=== PATIENT | female | born 1985 | race Hispanic/Latino ===

== ENCOUNTER 2017-12-06 19:44 | Emergency (ER) | payer OTHER ==
[~2017-12-06] VITALS: Ht 152.4 cm; Wt 99.8 kg
[2017-12-06 22:20] LABS: BILIRUBIN,URINE NEGATIVE (NEGATIVE); KETONES,URINE NEGATIVE (NEGATIVE); LEUKOCYTE ESTERASE ,URINE 2+ (NEGATIVE); NITRITE,URINE NEGATIVE (NEGATIVE); PROTEIN,URINE DIPSTICK NEGATIVE (NEGATIVE); URINE UROBILINOGEN 4 mg/dL (0.2 - 1)
[2017-12-06 22:22] LABS: CLARITY,URINE SL CLOUDY (CLEAR); COLOR,URINE YELLOW (YELLOW)
[2017-12-06 22:23] LABS: BASOPHILS % 0.1 % (0.0-1.0); HEMATOCRIT 37.5 % (34.2-44.1); HEMOGLOBIN 12.2 g/dL (12.0-16.0); LYMPHOCYTES # (AUTO) 0.5 (1.0-3.2); LYMPHOCYTES % 3.8 % (18.0-39.1); MEAN CORPUSCULAR HEMOGLOBIN 30.2 pg (28-32); MEAN CORPUSCULAR HGB CONC 32.5 g/dL (31-35); MEAN CORPUSCULAR VOLUME 92.8 fL (81-99); MONOCYTES # (AUTO) 0.4 (0.2-0.8); MONOCYTES % 2.9 % (4.4-11.3); NEUTROPHILS # (AUTO) 11.2 (2.1-6.9); NEUTROPHILS % 92.9 % (38.7-80.0); PLATELET COUNT 271 x10e3/uL (140-360); RED BLOOD COUNT 4.04 x10e6/uL (3.6-5.1); RED CELL DISTRIBUTION WIDTH 12.7 % (11.7-14.4)
[2017-12-06 22:24] LABS: PREGNANCY TEST, URINE NEGATIVE (NEGATIVE)
[2017-12-06 22:32] LABS: BACTERIA,URINE MODERATE /HPF; EPITHELIAL CELLS,URINE MANY /LPF; MUCUS,URINE MODERATE (RARE); RBC,URINE 0-5 /HPF (0-5)
[2017-12-06 22:34] LABS: ALANINE AMINOTRANSFERASE 23 IU/L (0-55); ALBUMIN 3.7 g/dL (3.5-5.0); ALBUMIN/GLOBULIN RATIO 0.9 (0.8-2.0); ALKALINE PHOSPHATASE 93 IU/L (40-150); AMYLASE 43 U/L (25-125); ANION GAP 13.8 mmol/L (8-16); BLOOD UREA NITROGEN 14 mg/dL (7-26); BUN/CREATININE RATIO 16 (6-25); CALCIUM 8.8 mg/dL (8.4-10.2); CARBON DIOXIDE 21 mmol/L (22-29); CHLORIDE 105 mmol/L (98-107); CREATININE, SERUM 0.87 mg/dL (0.57-1.11); EST GLOMERULAR FILTRATION RATE > 60 ML/MIN (60-); GLUCOSE 98 mg/dL (74-118); LIPASE 16 U/L (8-78); POTASSIUM 3.8 mmol/L (3.5-5.1); SODIUM 136 mmol/L (136-145)
[2017-12-06] MEDS ORDERED: ACETAMINOPHEN 325 MG TAB PO ONE (23:45)
--- NOTE | 2017-12-06 23:46 | Diagnostic Imaging Report ---
EXAM: Right Upper Quadrant Ultrasound INDICATION: Abdominal pain COMPARISON: None. TECHNIQUE: Transverse and longitudinal images of the right upper abdomen were obtained. FINDINGS: Liver: Size: 15.8 cm in the right midclavicular line, normal Appearance: Normal echogenicity, smooth contour Mass: No focal masses Gallbladder: Stones/Sludge: None Wall: 0.2 cm Appearance: No wall thickening, pericholecystic fluid or hydrops. Sonographic Buck's Sign: Negative Bile Ducts: Intrahepatic Ducts: No dilatation Extrahepatic Ducts: Common bile duct measures 0.3 cm, no dilatation Pancreas: Visualized portions of the pancreatic head, neck and proximal body are normal. Kidneys: Length: Right 9.1 cm Echogenicity: Normal Collecting System: No hydronephrosis Stone: None Cyst/Mass: None Vessels: Aorta: Visualized portions are normal Inferior Vena Cava: Visualized portions are normal Main Portal Vein: 0.9 cm, normal size with hepatopetal flow. Free Fluid: No ascites or pleural effusion IMPRESSION: Normal right upper quadrant ultrasound. Signed by: Dr. Israel Musa M.D. on 12/06/2017 11:42 PM
[2017-12-07] MEDS ORDERED: CEFTRIAXONE SOD 1 GM VIAL IM STA (00:21)
[2017-12-07] MEDS ORDERED: CEFTRIAXONE SOD 1 GM VIAL IV STA (00:54)
[2017-12-07 00:57] VITALS: BP 115/56
== END 2017-12-07 01:50 | disposition home or self-care (01) ==
LOC: ER 19:44
DX: R10.13 Epigastric pain (principal); R50.9 Fever, unspecified; N30.91 Cystitis, unspecified with hematuria
CPT/HCPCS: 36415; 76705; 80053; 81001; 81025; 82150; 83690; 85025; 87086; 87400; 99284; J0696

== ENCOUNTER 2017-12-15 10:29 | Emergency (ER) | payer OTHER ==
[~2017-12-15] VITALS: Ht 152.4 cm; Wt 99.8 kg
[2017-12-15 11:21] LABS: BILIRUBIN,URINE 1+ (NEGATIVE); KETONES,URINE 1+ (NEGATIVE); LEUKOCYTE ESTERASE ,URINE 2+ (NEGATIVE); NITRITE,URINE NEGATIVE (NEGATIVE); URINE UROBILINOGEN 0.2 mg/dL (0.2 - 1)
[2017-12-15 11:27] LABS: CLARITY,URINE SL CLOUDY (CLEAR); COLOR,URINE AMBER (YELLOW); PROTEIN,URINE DIPSTICK 2+ (NEGATIVE)
[2017-12-15 11:56] LABS: BACTERIA,URINE FEW /HPF; EPITHELIAL CELLS,URINE MODERATE /LPF; RBC,URINE 21-50 /HPF (0-5)
[2017-12-15 14:28] LABS: BASOPHILS % 0.1 % (0.0-1.0); HEMATOCRIT 38.9 % (34.2-44.1); HEMOGLOBIN 12.7 g/dL (12.0-16.0); LYMPHOCYTES # (AUTO) 0.4 (1.0-3.2); MEAN CORPUSCULAR HEMOGLOBIN 30.4 pg (28-32); MEAN CORPUSCULAR HGB CONC 32.6 g/dL (31-35); MEAN CORPUSCULAR VOLUME 93.1 fL (81-99); MONOCYTES # (AUTO) 0.4 (0.2-0.8); MONOCYTES % 4.5 % (4.4-11.3); NEUTROPHILS # (AUTO) 7.6 (2.1-6.9); PLATELET COUNT 277 x10e3/uL (140-360); RED BLOOD COUNT 4.18 x10e6/uL (3.6-5.1); RED CELL DISTRIBUTION WIDTH 12.5 % (11.7-14.4)
[2017-12-15] MEDS ORDERED: ACETAMINOPHEN 325 MG TAB PO ONE (14:30)
[2017-12-15 14:42] LABS: ALANINE AMINOTRANSFERASE 16 IU/L (0-55); ALBUMIN 4.1 g/dL (3.5-5.0); ALKALINE PHOSPHATASE 85 IU/L (40-150); ANION GAP 11.5 mmol/L (8-16); BLOOD UREA NITROGEN 9 mg/dL (7-26); BUN/CREATININE RATIO 9 (6-25); CALCIUM 8.8 mg/dL (8.4-10.2); CARBON DIOXIDE 25 mmol/L (22-29); CHLORIDE 101 mmol/L (98-107); CREATININE, SERUM 0.97 mg/dL (0.57-1.11); EST GLOMERULAR FILTRATION RATE > 60 ML/MIN (60-); GLUCOSE 109 mg/dL (74-118); POTASSIUM 3.5 mmol/L (3.5-5.1); SODIUM 134 mmol/L (136-145)
[2017-12-15 15:56] VITALS: BP 144/75
[2017-12-15] MEDS ORDERED: IBUPROFEN 400 MG TAB PO ONE (16:15)
== END 2017-12-15 16:08 | disposition home or self-care (01) ==
LOC: ER 10:29
DX: N39.0 Urinary tract infection, site not specified (principal); J09.X2 Influenza due to identified novel influenza A virus with other respiratory manifestations
CPT/HCPCS: 36415; 80053; 81001; 85025; 87086; 87400; 99284

== ENCOUNTER 2020-01-16 08:59 | Emergency (ER) | payer SELFPAY ==
[~2020-01-16] VITALS: Ht 152.4 cm; Wt 99.8 kg
--- OUTSIDE RECORDS SUMMARY | 2020-01-16 09:01 | XMS REPORT ---
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 Allergies, Adverse Reactions, Alerts This patient has no known allergies or adverse reactions. Medications This patient has no known medications. Results Test Description Test Time Test Comments Text Results Atomic Results Result Comments US GALLBLADDER [place] [id number] [place] [id number] Patient Name: GLORIA BAH MR #: [id number] : 1985 Age/Sex: 32/F Req #: [id number] Adm Physician: Ordered by: BLAINE DENG MD Report #: [id number] Location: ER Room/Bed: Procedure: [id number] US/US GALLBLADDER Exam Date: 12/06/17 Exam Time: 2233 REPORT STATUS: Signed EXAM: Right Upper Quadrant Ultrasound INDICATION: Abdominal pain COMPARISON: None. TECHNIQUE: Transverse and longitudinal images of the right upper abdomen were obtained. FINDINGS: Liver: Size: 15.8 cm in the right midclavicular line, normal Appearance: Normal echogenicity, smooth contour Mass: No focal masses Gallbladder: Stones/Sludge: None Wall: 0.2 cm Appearance: No wall thickening, pericholecystic fluid or hydrops. Sonographic Buck's Sign: Negative Bile Ducts: Intrahepatic Ducts: No dilatation Extrahepatic Ducts: Common bile duct measures 0.3 cm, no dilatation Pancreas: Visualized portions of the pancreatic head, neck and proximal body are normal. Kidneys: Length: Right 9.1 cm Echogenicity: Normal Collecting System: No hydronephrosis Stone: None Cyst/Mass: None Vessels: Aorta: Visualized portions are normal Inferior Vena Cava: Visualized portions are normal Main Portal Vein: 0.9 cm, normal size with hepatopetal flow. Free Fluid: No ascites or pleural effusion IMPRESSION: Normal right upper quadrant ultrasound. Signed by: Dr. Israel Musa M.D. on 12/06/2017 11:42 PM Dictated By: ISRAEL RING MD [id number] Transcribed By: VICKI on 12/06/172341 COPY TO: BLAINE DENG MD
[2020-01-16] MEDS: ACETAMINOPHEN 325 MG TAB PO ONE (09:39)
[2020-01-16 10:06] LABS: CLARITY,URINE CLOUDY (CLEAR); COLOR,URINE YELLOW (YELLOW); KETONES,URINE NEGATIVE (NEGATIVE); LEUKOCYTE ESTERASE ,URINE LARGE (NEGATIVE); NITRITE,URINE NEGATIVE (NEGATIVE); PROTEIN,URINE DIPSTICK 2+ (NEGATIVE); URINE UROBILINOGEN 0.2 mg/dL (0.2 - 1)
[2020-01-16 10:07] LABS: BILIRUBIN,URINE NEGATIVE (NEGATIVE); PREGNANCY TEST, URINE NEGATIVE (NEGATIVE)
[2020-01-16 10:17] LABS: BACTERIA,URINE MANY /HPF; EPITHELIAL CELLS,URINE MODERATE /LPF
[2020-01-16] MEDS: CEFTRIAXONE SOD 1 GM VIAL IM ONE (10:50)
== END 2020-01-16 11:09 | disposition home or self-care (01) ==
LOC: ER 08:59
DX: R30.0 Dysuria (principal); N30.90 Cystitis, unspecified without hematuria; N10 Acute pyelonephritis; N12 Tubulo-interstitial nephritis, not specified as acute or chronic
CPT/HCPCS: 81001; 81025; 99284; J0696

== ENCOUNTER 2022-06-28 17:28 | Emergency (ER) | payer OTHER ==
[~2022-06-28] VITALS: Ht 152.4 cm; Wt 99.8 kg
[2022-06-28] MEDS ORDERED: IBUPROFEN 400 MG TAB PO ONE (18:15)
== END 2022-06-28 21:01 | disposition home or self-care (01) ==
LOC: ER 17:51
DX: R05.9 Cough, unspecified (principal); J06.9 Acute upper respiratory infection, unspecified; R50.9 Fever, unspecified; R09.89 Other specified symptoms and signs involving the circulatory and respiratory systems
CPT/HCPCS: 0223U; 36415; 99283

== ENCOUNTER 2024-06-29 17:06 | Emergency (ER) | payer SELFPAY ==
[~2024-06-29] VITALS: Ht 152.4 cm; Wt 99.8 kg
[~2024-06-29 17:06] MED LIST: CIPRO500 MG PO; DIFLUCAN150 MG PO; DOXYCYCLINE HY100 MG PO; SUPRAX400 M1 PO
[2024-06-29 17:37] VITALS: PULSE 74; RESP 16; TEMP 98.1; O2SAT 100
== END 2024-06-29 19:11 | disposition home or self-care (01) ==
LOC: ER 17:25
DX: U07.1 COVID-19 (principal); R51.9 Headache, unspecified; R09.89 Other specified symptoms and signs involving the circulatory and respiratory systems
CPT/HCPCS: 87400; 99282; U0002

== ENCOUNTER 2025-03-18 17:06 | Emergency (ER) | payer SELFPAY ==
[~2025-03-18] VITALS: Ht 152.4 cm; Wt 99.8 kg
[2025-03-18 18:31] LABS: CORONAVIRUS COVID-19 AG NEGATIVE (NEGATIVE); INFLUENZA A AG NEGATIVE (NEGATIVE); INFLUENZA B AG NEGATIVE (NEGATIVE)
[2025-03-18] MEDS: ACETAMINOPHEN 325 MG TAB PO ONE (19:32)
[2025-03-18 19:56] VITALS: PULSE 65; RESP 16; TEMP 99
[2025-03-18 20:00] VITALS: BP 143/88; O2SAT 99
== END 2025-03-18 20:02 | disposition home or self-care (01) ==
LOC: ER 17:47
DX: R05.9 Cough, unspecified (principal); J06.9 Acute upper respiratory infection, unspecified; R51.9 Headache, unspecified; Z11.52 Encounter for screening for COVID-19
CPT/HCPCS: 71045; 99284